=== PATIENT | female | born 1975 | race African-American/Black ===

== ENCOUNTER 2022-07-12 20:27 | Emergency (ER) | payer MEDICAID, MEDICARE ==
[~2022-07-12] VITALS: Ht 157.5 cm; Wt 85.5 kg
[~2022-07-12 20:27] MED LIST: LORA-249 PO; OMEP20CA14 PO
[2022-07-12 20:33] VITALS: BP 186/103
[2022-07-12 21:51] LABS: BASOPHILS % 0.8 % (0.0-2.0); EOSINOPHILS % 2.2 % (0.0-5.0); HEMATOCRIT. 37.2 % (36.0-48.0); HEMOGLOBIN. 12.1 g/dL (12.0-16.0); LYMPHOCYTES % 37.2 % (20.0-50.0); MEAN CORPUSCULAR HEMOGLOBIN 25.4 pg (28.0-32.0); MEAN CORPUSCULAR VOLUME 77.6 fL (81.0-99.0); MEAN PLATELET VOLUME 8.1 fl (7.4-10.4); MONOCYTES % 5.2 % (2.0-8.0); NEUTROPHILS % 54.6 % (40.0-76.0); PLATELET 271 x1000/uL (130-400); RED BLOOD CELL COUNT 4.79 mill/uL (4.2-5.4); RED CELL DISTRIBUTION WIDTH 14.1 % (11.6-14.6)
[2022-07-12 21:57] LABS: CHLORIDE 103 mEq/L (98-107)
[2022-07-13] MEDS ORDERED: HYDR12.54 MT (02:40)
== END 2022-07-13 02:52 | disposition home or self-care (01) ==
LOC: ER 20:27
DX: R51.9 Headache, unspecified (principal)
CPT/HCPCS: 36415; 80053; 84484; 85025; 93005; 99283